=== PATIENT | male | born 1940 | race Two or more races ===

== ENCOUNTER 2023-07-15 23:25 | Emergency (ER) | payer OTHER ==
[~2023-07-15] VITALS: Ht 172.7 cm; Wt 72.6 kg
[2023-07-15 23:59] VITALS: BP 92/53; TEMP 97; O2SAT 97
== END 2023-07-16 02:33 ==
LOC: ER 23:30
DX: S61.411A Laceration without foreign body of right hand, initial encounter (principal); S00.81XA Abrasion of other part of head, initial encounter; G30.9 Alzheimer's disease, unspecified; F02.80 Dementia in other diseases classified elsewhere, unspecified severity, without behavioral disturbance, psychotic disturbance, mood disturbance, and anxiety; I48.91 Unspecified atrial fibrillation; E78.5 Hyperlipidemia, unspecified; Z88.0 Allergy status to penicillin; Z99.2 Dependence on renal dialysis; Z88.8 Allergy status to other drugs, medicaments and biological substances; W18.30XA Fall on same level, unspecified, initial encounter; Y93.89 Activity, other specified; Y92.89 Other specified places as the place of occurrence of the external cause; Y99.8 Other external cause status
CPT/HCPCS: 70450-TC; 72125-TC